=== PATIENT | male | born 1985 | race Asian ===

== ENCOUNTER 2019-05-31 15:41 | Outpatient (CLI) | payer OTHER ==
[2019-05-31 16:46] LABS: ANION GAP 6 mmol/L (5-15); BLOOD UREA NITROGEN 10 mg/dL (7-18); CALCIUM 9.5 MG/DL (8.5-10.1); CARBON DIOXIDE 28 MMOL/L (21-32); CHLORIDE 106 MMOL/L (98-107); CREATININE 1.1 MG/DL (0.55-1.30); POTASSIUM 3.8 MMOL/L (3.5-5.1); SODIUM 140 MMOL/L (136-145)
--- NOTE | 2019-06-01 10:24 | Diagnostic Imaging Report ---
Indication: Chest pain Technique: Continuous helical transaxial imaging of the chest was obtained from the thoracic inlet to the upper abdomen during rapid intravenous contrast administration. Arterial phase of enhancement obtained. Coronal 2-D reformats were also obtained and maximum intensity projection images in multiple planes. Study obtained in a Siemens sensation [address] Automatic Exposure Control was utilized. Total Dose length Product (DLP): 978.[address] Dose Index Volume (CTDIvol): 23.4 mGy Comparison: None Findings: There is a filling defect within the descending branch of the right pulmonary artery consistent with pulmonary embolus. Thrombus extends into the segmental branches. There is a wedge-shaped area of the parenchymal opacity within the posterior part of the right lower lobe. This could be developing pulmonary infarct. No other filling defects are identified. There is no CT evidence of right heart strain. The lungs are otherwise clear. There is no adenopathy, pericardial or pleural effusion. The visualized upper abdomen is unremarkable. IMPRESSION: Positive study demonstrating filling defect in the descending branch of the right pulmonary artery consistent with pulmonary embolus. Peripheral, parenchymal density in the posterior right lower lobe but may be developing infarct. Critical value communication. Findings were discussed via telephone with the emergency room physician at [facility] at 10:00 AM 06/01/2019. The patient was discharged yesterday from [facility] after appendectomy but presented to [facility] emergency room this morning complaining of chest pain. This current examination was requested as a routine examination and was not flagged for immediate or stat interpretation. The CT scanner at [facility] is accredited by the [employer] and the scans are performed using dose optimization techniques as appropriate to a performed exam including Automatic Exposure control.
== END 2019-05-31 17:41 | disposition home or self-care (01) ==
LOC: CAT 15:41
DX: I26.99 Other pulmonary embolism without acute cor pulmonale (principal)
CPT/HCPCS: 36415; 71275; 80048; Q9967